=== PATIENT | male | born 2005 | race African-American/Black ===

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

== ENCOUNTER 2024-05-06 09:43 | Emergency (ER) | payer SELFPAY ==
[~2024-05-06] VITALS: Ht 177.8 cm; Wt 56.7 kg
[~2024-05-06 09:43] MED LIST changes: +CYCLOBENZAPRINE10 MG PO
== END 2024-05-06 11:51 | disposition home or self-care (01) ==
LOC: ED 09:43
DX: U07.1 COVID-19 (principal); R51.9 Headache, unspecified; Z98.890 Other specified postprocedural states